=== PATIENT | male | born 1950 | race Caucasian/White ===

== ENCOUNTER 2017-06-29 17:39 | Emergency (ER) | payer MEDICARE, MEDICAID ==
[~2017-06-29] VITALS: Ht 177.8 cm; Wt 104.3 kg
[2017-06-29 19:00] VITALS: BP 104/65
--- NOTE | 2017-06-29 21:54 | Emergency Room Report ---
History of Present Illness General Chief Complaint: Chest Pain Present Illness Allergies: Coded Allergies: No Known Allergies (Unverified , 06/29/17) Nursing Documentation-PMH Hx Hypertension: Yes Hx Diabetes: Yes Hx Gastrointestinal Problems: Yes - GERD Hx Dialysis: Yes Hx Neurological Problems: Yes - DEPRESSION Physical Exam Vital Signs Date Time Temp Pulse Resp B/P Pulse Ox O2 Delivery O2 Flow Rate FiO2 06/29/17 17:33 95 20 104/65 99 Room Air Medical Decision Making Diagnostic Impression: Primary Impression: Chest pain ER Course Patient brought in by EMS for chest pain. Patient has history of dialysis. Patient was very angry upon arrival. States that he wants to go to [facility]. Would not let himself he triaged. Will not let MD provider evaluate him. Refuses signed AMA form. Patient walked out from ambulance bay and left the hospital Last Vital Signs Date Time Temp Pulse Resp B/P Pulse Ox O2 Delivery O2 Flow Rate FiO2 06/29/17 19:00 20 104/65 99 Room Air 06/29/17 19:00 95 Status: unchanged Disposition: AGAINST MEDICAL ADVICE Condition: Unknown Referrals: NOT CHOSEN INES/,REFERRING (PCP) SUE ARCINIEGA M.D. Jun 29, 2017 21:54
== END 2017-06-29 19:00 | disposition left against medical advice (07) ==
LOC: EDBD 17:39 → EMR 17:46
DX: R07.9 Chest pain, unspecified (principal); I10 Essential (primary) hypertension; E11.9 Type 2 diabetes mellitus without complications; K21.9 Gastro-esophageal reflux disease without esophagitis
CPT/HCPCS: 99283